=== PATIENT | male | born 1995 | race Hispanic/Latino ===

== ENCOUNTER 2019-08-31 | Observation (INO) | payer SELFPAY ==
--- NOTE | 2019-08-30 22:18 | NUR ---
PT. ANBULATED TO ROOM 12 IN STABLE CONDITION.
[2019-08-30 22:46] LABS: HEMATOCRIT 41.1 % (39.0-50.0); IMMATURE GRANULOCYTES 0.2 % (0.0-5.0); MEAN CELL VOLUME 82.7 fL CALC (80.0-100.0); MEAN CORPUSCULAR HGB 28.2 pG CALC (26.0-32.0); MEAN CORPUSCULAR HGB CONC 34.1 g/L CALC (32.0-36.0); NEUT# 9.52 thou/uL (1.82-7.42); RED BLOOD COUNT 4.97 mill/uL (4.70-6.10); RED CELL DISTRI WIDTH 11.9 % (11.5-15.5); URINE BILIRUBIN - DIPSTICK NEGATIVE (NEGATIVE); URINE BLOOD DIPSTICK NEGATIVE (NEGATIVE); URINE COLOR YELLOW; URINE GLUCOSE - DIPSTICK NEGATIVE (NEGATIVE); URINE KETONE NEGATIVE (NEGATIVE); URINE LEUK ESTERASE NEGATIVE (NEGATIVE); URINE NITRITE - DIPSTICK NEGATIVE (Negative); URINE PROTEIN - DIPSTICK NEGATIVE (NEG-TRACE); URINE SPECIFIC GRAVITY <=1.005; URINE UROBILINOGEN - DIPSTICK 0.2 E.U./dL (0.2)
[2019-08-30 23:07] LABS: ALBUMIN 4.3 g/dL (3.2-5.0); ALKALINE PHOSPHATASE 69 u/l (38-126); AMYLASE 53 u/l (30-110); ANION GAP 16 (6-22 (CALC)); BILIRUBIN, TOTAL 1.4 mg/dL (0.0-1.4); BUN 15 mg/dL (9-20); BUN/CREATININE RATIO 17 (12-20 (CALC)); CARBON DIOXIDE 23 mmol/l (22-30); CHLORIDE 102 mmol/l (95-108); CREATININE 0.8 mg/dL (0.7-1.3); GFR > 60 ML/MIN (>=60 (CALC)); GFR FOR AFR.AMER. > 60 ML/MIN (>=60 (CALC)); LIPASE 151 u/l (23-300); POTASSIUM 4.1 mmol/l (3.5-5.1); SGOT/AST 24 u/l (17-59); SODIUM 137 mmol/l (137-146); TOTAL PROTEIN 7.7 g/dL (6.3-8.2)
--- NOTE | 2019-08-30 23:31 | NUR ---
PT IS ASLEEP AND APPARENTLY PAINFREE
[2019-08-31] VITALS (11 sets, daily range): BP systolic 104–135; BP diastolic 48–74
--- NOTE | 2019-08-31 00:40 | NUR ---
PT COMPLETES ORAL CONTRAST FOR CT
--- NOTE | 2019-08-31 00:59 | NUR ---
PT IS ASLEEP AND APPARENTLY IN NO PAIN OR DISOMFORT NO N/V
--- NOTE | 2019-08-31 01:56 | NUR ---
PT DENIES PAIN NO N/V.W/P/D SKIN
--- NOTE | 2019-08-31 02:44 | NUR ---
AWAKENED FROM SLEEP DENIES PAIN NO N/V.W/P/D SKIN
--- NOTE | 2019-08-31 03:10 | NUR ---
PHONE REPORT TO NURSE PORTER ON MS2
--- NOTE | 2019-08-31 03:16 | NUR ---
PT TRANSPORTD TO [id number] IN STABLE CONDITION
--- NOTE | 2019-08-31 03:20 | NUR ---
PT ARRIVED TO FLOOR VIA STRETCHER ACCOMPAINED BY ER STAFF AND GIRLFRIEND. PT ORIENTED X3 AND DROWSY. PT DENIES ANY PAIN OR DISCOMFORT. AMBULATED FROM STRETCHER TO BED WITH STEADY GAIT. PT IS KYRGYZ SPEAKING. MARIA GUADALUPE JIMENEZ IN ROOM TO TRANSLATE. IV SITE APPEARS HEALTHY. IV ABT INFUSING WITHOUT DIFFICULTY. PT ORIENTED TO ROOM AND CALL LIGHT SYSTEM. DISCUSSED POC. PT VERBALIZED UNDERSTANDING. GIRLFRIEND REMAINS IN ROOM, PILLOW AND BLANKETS PROVIDED. CALL LIGHT WITHIN REACH. WILL CONTINUE TO MONITOR.
--- NOTE | 2019-08-31 08:00 | NUR ---
ASSESSMENT IS COMPLETED: IV SITE IS FREE FROM REDNESS OR EDEMA.HR IS REG,PULSES ARE STRONG X4, ABD IS TENDER WITH ACTIVE BS. PRIOR TO SURGERY, BREATH SOUNDS ARE CLEAR,BILATERALLY, GIRLFRIEND IN THE ROOM. CONTINUE TO OBSERVE AND MONITOR.
--- NOTE | 2019-08-31 08:00 | NUR ---
PT SIGNED CONSENT IN THE OR WITH AN TRANSCRIBER. SENT TO OR VIA STRETCHER ACCOMPANIED BY STAFF. AT 0745 HAD STUDENT THAT SPOKE JAMAICAN , ASKED PT "WHAT WAS GOING ON AND WHAT WAS EXPLAINED ABOUT WHAT THEY ARE GOING TO DO" PT ABLE TO SAY "THEY ARE GOING TO DO SURGERY ON ME POINTING TO HIS R SIDE" GIRLFRIEND IN THE ROOM. VERBALIZED UNDERSTANDING.
--- NOTE | 2019-08-31 11:15 | NUR ---
PT ARRIVED FROM OR VIA STRETCHER ACCOMPANIED BY STAFF. IV SITE IS FREE FROM REDNESS OR EDEMA. HAS LAPRASCOPIC INCISIONS. THAT ARE CDI. EBL WAS 10 , IV FLUIDS ADMINISTERED WAS 1000. CONTINUE TO OBSERVE AND MONITOR.
--- NOTE | 2019-08-31 12:30 | NUR ---
PT CONTINUES TO REST WITH EYES CLOSED. ATE VERY MINIMAL. IV SITE IS FREE FROM REDNESS OR EDEMA. CONTINUE TO OBSERVE AND MONOITOR.
--- NOTE | 2019-08-31 16:15 | NUR ---
PT IS RELAXING IN BED HAS AMBUALTED IN WITH NO DISTRESS NOTED.
--- NOTE | 2019-08-31 20:05 | NUR ---
PT SITTING IN BED WATCHING TV. A&O X3. NO DISTRESS NOTED AT THIS TIME. NO PAIN AT THIS TIME. PT STATES HE TOLERATED SUPPER WELL. SUGICAL INCISIONS INTACT. NO NEEDS AT THIS TIME. DISCUSSED POC. ASSESSMENT COMPLETED AT THIS TIME. CALL LIGHT WITHIN REACH. CONTINUE TO MONITOR.
--- NOTE | 2019-08-31 23:41 | NUR ---
PT SLEEPING IN BED WITH GIRLFRIEND AT BEDSIDE. NO DISTRESS NOTED. IV TORADOL GIVEN FOR PAIN, PT TOLERATED WELL. ZOSYN INITIATED. CALL LIGHT IN REACH. CONTINUE TO MONITOR.
--- NOTE | 2019-09-01 02:03 | NUR ---
PT SLEEPING IN BED WITH GIRLFRIEND AT BEDSIDE. NO DISTRESS NOTED. CONTINUE TO MONITOR.
[2019-09-01 03:42] VITALS: BP 111/57
--- NOTE | 2019-09-01 05:36 | NUR ---
PT SLEEPING IN BED. NO DISTRESS NOTED. IV TORADOL GIVEN. PT TOLERATED WELL. CONTINUE TO MONITOR.
--- NOTE | 2019-09-01 05:36 | NUR ---
PT TOLERATED REGULAR DIET WELL WITH SNACKS THROUGHOUT THE NIGHT. FLUIDS D/C, PT NOW SALINE LOCK.
[2019-09-01 08:25] VITALS: BP 129/53
--- NOTE | 2019-09-01 08:30 | NUR ---
ASSESSMENT IS COMPLETED: IV SITE IS FREE FROM REDNESS OR EDEMA. HR IS REG,PULSES ARE STRONG X4, ABD IS SOFT WITH ACTIVE BS. BREATH SOUNDS ARE CLEAR,BILATERALLY. INCISIONS ARE CDI. CONTINUE TO OBSERVE AND MONITOR.
[2019-09-01] MEDS ORDERED: PERCOCET 5/325M1 TAB PO (10:00)
--- NOTE | 2019-09-01 10:30 | NUR ---
IV SITE DISCONITNUED CATHETER INTACT. NO REDNESS OR EDEMA. FAMILY IN THE ROOM
--- NOTE | 2019-09-01 10:52 | NUR ---
PT RECEIVED DISCHARGE INSTRUCTIONS INTERPRETED BY DELFIN LERMA. FAMILY IN THE ROOM. IV SITE DISCONTINUED CATHETER INTACT. Discharge instructions given. Patient verbalizes understanding of same. Discharged in stable condition via Wheelchair to Home with family. All belongings sent with pt.
== END 2019-09-01 10:55 | disposition home or self-care (01) | DRG 340 ==
PROVIDERS: Family Medicine; ADMIT Surgery
PROC: 0DTJ4ZZ Resection of Appendix, Percutaneous Endoscopic Approach (ICD-10-PCS; principal; 2019-08-31)
DX: K35.33 Acute appendicitis with perforation, localized peritonitis, and gangrene, with abscess (principal)
CPT/HCPCS: G0378; J0131; J1100; J2710